=== PATIENT | female | born 1955 | race Caucasian/White ===

== ENCOUNTER 2023-08-10 10:32 | Inpatient (IN) | payer MEDICARE ==
[2023-08-10 11:27] LABS: #Monocytes 0.3 10x3/uL (0.0-1.1); #Neutrophils 4.1 10x3/uL (1.5-8.4); %Basophils 0.7 % (0.0-2.0); %Eosinophils 0.5 % (0.0-6.0); %Lymphocytes 19.3 % (18.0-47.0); Hemoglobin 10.5 g/dL (12.0-15.5); Mean Corpuscular HGB CONC 31.8 g/dL (32.0-36.0); Mean Corpuscular Hemoglobin 30.1 pg (27.0-33.0); Mean Corpuscular Volume 94.6 fl (81.6-98.3); Mean Platelet Volume 9.7 fl (7.4-10.4); Platelet Count 293 10x3/uL (150-450); RBC Distribution Width 14.4 % (11.5-14.5); Red Blood Cell (RBC) Count 3.49 10x6/uL (3.90-5.03); White Blood Cell (WBC) Count 5.7 10x3/uL (3.5-10.5)
[2023-08-10 11:45] LABS: ALT (SGPT) 9 U/L (8-55); AST (SGOT) 20 U/L (5-34); Albumin 3.5 g/dL (3.4-4.8); Alkaline Phosphatase 101 U/L (40-110); Anion Gap 15 mmol/L (10-20); BUN (Urea Nitrogen) 31 mg/dL (9.8-20.1); Bilirubin, Total 0.5 mg/dL (0.2-1.2); Calc. Creatinine Clearance 0 mL/min (70-130); Calcium 9.4 mg/dL (7.8-10.44); Carbon Dioxide 25 mmol/L (23-31); Chloride 100 mmol/L (98-107); Estimated GFR 24; Globulin 3.6 g/dL (2.4-3.5); Glucose 126 mg/dL (80-115); Lipase 17 U/L (8-78); Protein, Total 7.1 g/dL (5.8-8.1); Sodium 136 mmol/L (136-145)
[2023-08-10 13:24] LABS: Troponin I 0.019 ng/mL (< 0.028)
[2023-08-10] MEDS ORDERED: Furosemide 40 MG (4 mL) VIAL ONE (13:49)
[2023-08-10] MEDS ORDERED: Acetaminophen 325 MG TAB PO PRN (14:23)
[2023-08-10] MEDS ORDERED: Ondansetron ODT 4 MG TAB PO PRN (14:23)
[2023-08-10] MEDS ORDERED: Ondansetron PF 4 MG/2 ML Vial IVP PRN (14:23)
[2023-08-10 15:12] LABS: Troponin I 0.017 ng/mL (< 0.028)
[2023-08-10 15:18] LABS: Magnesium 1.7 mg/dL (1.6-2.6)
[2023-08-10] MEDS: Nicotine 14 MG PATCH TD SCH (16:15)
[2023-08-10 17:54] LABS: Troponin I 0.012 ng/mL (< 0.028)
[2023-08-10 21:46] VITALS: BMI 31.3
[2023-08-10 21:51] LABS: Bilirubin Neg (Negative); Blood, Urine 10 (Negative); Clarity Clear (Clear); Glucose, Urine (Dipstick) Normal (Negative); Ketone, Urine Negative (Negative); Leukocyte Negative (Negative); Nitrite Negative (Negative); Protein, Urine (Dipstick) 100 mg/dl (Neg-Trace); Urobilinogen Normal mg/dL (Less than 2)
[2023-08-10] MEDS ORDERED: Pantoprazole 40 MG VIAL IVP SCH (22:00)
[2023-08-10 22:06] LABS: CAUTI Indications for Culture Alt mental st,lethar; RBC/HPF 0-3 HPF (0-3); WBC/HPF 0-3 HPF (0-3)
[2023-08-10 22:07] LABS: Bacteria/HPF None Seen HPF (None Seen); Urine Culture Reflex No No
[2023-08-10] MEDS ORDERED: Pantoprazole 40 MG VIAL ONE (22:09)
[2023-08-11] MEDS ORDERED: traZODone HCl 50 MG TAB PO SCH (00:15)
[2023-08-11] MEDS ORDERED: traZODone HCl 50 MG TAB ONE (00:23)
[2023-08-11 04:38] LABS: #Eosinphils 0.1 10x3/uL (0.0-0.5); #Monocytes 0.5 10x3/uL (0.0-1.1); #Neutrophils 3.4 10x3/uL (1.5-8.4); %Basophils 0.6 % (0.0-2.0); %Eosinophils 1.5 % (0.0-6.0); %Lymphocytes 24.9 % (18.0-47.0); %Monocytes 8.9 % (0.0-10.0); %Neutrophils 63.5 % (40.0-75.0); Hematocrit 30.8 % (34.9-44.5); Hemoglobin 9.8 g/dL (12.0-15.5); Mean Corpuscular HGB CONC 31.8 g/dL (32.0-36.0); Mean Corpuscular Hemoglobin 29.8 pg (27.0-33.0); Mean Corpuscular Volume 93.6 fl (81.6-98.3); Mean Platelet Volume 9.8 fl (7.4-10.4); Platelet Count 239 10x3/uL (150-450); RBC Distribution Width 14.3 % (11.5-14.5); Red Blood Cell (RBC) Count 3.29 10x6/uL (3.90-5.03); White Blood Cell (WBC) Count 5.3 10x3/uL (3.5-10.5)
[2023-08-11 04:55] LABS: Anion Gap 14 mmol/L (10-20); BUN (Urea Nitrogen) 30 mg/dL (9.8-20.1); Calc. Creatinine Clearance 38 mL/min (70-130); Calcium 8.9 mg/dL (7.8-10.44); Carbon Dioxide 26 mmol/L (23-31); Chloride 103 mmol/L (98-107); Estimated GFR 27; Glucose 91 mg/dL (80-115); Potassium 3.6 mmol/L (3.5-5.1); Sodium 139 mmol/L (136-145)
[2023-08-11] MEDS ORDERED: Furosemide 40 MG (4 mL) VIAL SLOW IVP SCH (09:00)
[2023-08-11] MEDS ORDERED: Furosemide 40 MG (4 mL) VIAL ONE (09:04)
[2023-08-11] MEDS ORDERED: Pantoprazole 40 MG VIAL ONE (09:05)
[2023-08-11] MEDS: Pantoprazole 40 MG VIAL IVP SCH ×2 (09:15→21:16)
[2023-08-11] MEDS ORDERED: hydrALAZINE 20 MG/ML VIAL SLOW IVP PRN (10:02)
[2023-08-11] MEDS ORDERED: NIFEdipine XL 60 MG ER.TAB PO SCH (10:30)
[2023-08-11 12:12] LABS: Hemoglobin A1c 5.3 % (4.0-6.0)
[2023-08-11] MEDS: hydrALAZINE 25 MG TAB PO SCH ×2 (16:03→21:16)
[2023-08-11] MEDS: Nicotine 14 MG PATCH TD SCH (16:03)
[2023-08-11] MEDS ORDERED: Melatonin 3 MG TAB PO SCH (20:30)
[2023-08-12 06:08] LABS: #Monocytes 0.5 10x3/uL (0.0-1.1); #Neutrophils 3.5 10x3/uL (1.5-8.4); %Basophils 0.5 % (0.0-2.0); %Eosinophils 0.4 % (0.0-6.0); %Lymphocytes 25.5 % (18.0-47.0); %Monocytes 9.6 % (0.0-10.0); %Neutrophils 63.3 % (40.0-75.0); Hematocrit 28.7 % (34.9-44.5); Hemoglobin 9.2 g/dL (12.0-15.5); Mean Corpuscular HGB CONC 32.1 g/dL (32.0-36.0); Mean Corpuscular Hemoglobin 29.8 pg (27.0-33.0); Mean Corpuscular Volume 92.9 fl (81.6-98.3); Mean Platelet Volume 10.2 fl (7.4-10.4); Platelet Count 243 10x3/uL (150-450); RBC Distribution Width 14.1 % (11.5-14.5); Red Blood Cell (RBC) Count 3.09 10x6/uL (3.90-5.03); White Blood Cell (WBC) Count 5.5 10x3/uL (3.5-10.5)
[2023-08-12 06:19] LABS: Anion Gap 13 mmol/L (10-20); BUN (Urea Nitrogen) 27 mg/dL (9.8-20.1); Calc. Creatinine Clearance 42 mL/min (70-130); Calcium 8.8 mg/dL (7.8-10.44); Carbon Dioxide 28 mmol/L (23-31); Chloride 101 mmol/L (98-107); Estimated GFR 30; Glucose 102 mg/dL (80-115); Potassium 3.5 mmol/L (3.5-5.1); Sodium 138 mmol/L (136-145)
[2023-08-12] MEDS: Furosemide 20 MG TAB PO SCH (08:07)
[2023-08-12] MEDS: hydrALAZINE 25 MG TAB PO SCH ×3 (08:07→20:47)
[2023-08-12] MEDS: Pantoprazole 40 MG VIAL IVP SCH ×2 (08:07→20:47)
[2023-08-12] MEDS: NIFEdipine XL 60 MG ER.TAB PO SCH (08:07)
[2023-08-12] MEDS ORDERED: traMADol HCl 50 MG TAB PO PRN (08:13)
[2023-08-12] MEDS ORDERED: Ipratropium/Albuterol 3 ML NEB NEB PRN (14:09)
[2023-08-12] MEDS: Nicotine 14 MG PATCH TD SCH (14:33)
[2023-08-12] MEDS ORDERED: ALPRAZolam 0.5 MG TAB PO SCH (16:00)
[2023-08-12] MEDS ORDERED: traZODone HCl 50 MG TAB PO PRN (20:00)
[2023-08-12] MEDS: busPIRone HCl 15 MG TAB PO SCH (20:52)
[2023-08-13 04:37] VITALS: BP 115/57; TEMP 98.6
[2023-08-13 05:44] LABS: #Monocytes 0.6 10x3/uL (0.0-1.1); #Neutrophils 3.6 10x3/uL (1.5-8.4); %Basophils 0.5 % (0.0-2.0); %Eosinophils 0.7 % (0.0-6.0); %Lymphocytes 23.4 % (18.0-47.0); %Monocytes 10.1 % (0.0-10.0); %Neutrophils 64.6 % (40.0-75.0); Hemoglobin 9.8 g/dL (12.0-15.5); Mean Corpuscular HGB CONC 31.6 g/dL (32.0-36.0); Mean Corpuscular Hemoglobin 29.8 pg (27.0-33.0); Mean Corpuscular Volume 94.2 fl (81.6-98.3); Mean Platelet Volume 9.8 fl (7.4-10.4); Platelet Count 230 10x3/uL (150-450); RBC Distribution Width 14.2 % (11.5-14.5); Red Blood Cell (RBC) Count 3.29 10x6/uL (3.90-5.03); White Blood Cell (WBC) Count 5.5 10x3/uL (3.5-10.5)
[2023-08-13 05:48] LABS: Anion Gap 11 mmol/L (10-20); BUN (Urea Nitrogen) 27 mg/dL (9.8-20.1); Calc. Creatinine Clearance 46 mL/min (70-130); Calcium 8.9 mg/dL (7.8-10.44); Carbon Dioxide 29 mmol/L (23-31); Chloride 101 mmol/L (98-107); Estimated GFR 33; Glucose 119 mg/dL (80-115); Potassium 3.8 mmol/L (3.5-5.1); Sodium 137 mmol/L (136-145)
[2023-08-13] MEDS: busPIRone HCl 15 MG TAB PO SCH (10:32)
[2023-08-13] MEDS: NIFEdipine XL 60 MG ER.TAB PO SCH (10:32)
[2023-08-13] MEDS: Furosemide 20 MG TAB PO SCH (10:32)
[2023-08-13] MEDS: Pantoprazole 40 MG VIAL IVP SCH (10:33)
[2023-08-13] MEDS ORDERED: Ipratropium/Albuterol 3 ML NEB NEB SCH ×2 (10:45→14:30)
[2023-08-13] MEDS ORDERED: predniSONE 20 MG TAB PO SCH (11:00)
[2023-08-13] MEDS: hydrALAZINE 25 MG TAB PO SCH (12:38)
[2023-08-13] MEDS ORDERED: Doxycycline 100 MG CAP PO SCH (21:00)
[2023-08-14] MEDS ORDERED: predniSONE 20 MG TAB PO SCH (08:00)
== END 2023-08-13 14:38 | disposition home or self-care (01) | DRG 683 ==
LOC: CSHERS 10:32 → CSHERHOLD 14:07 → CSHTELE 08-11 12:58 → OBSVTOIN 08-12 13:23
PROVIDERS: ADMIT Family Medicine; ATTEND Family Medicine
DX: N17.9 Acute kidney failure, unspecified (principal); I13.0 Hypertensive heart and chronic kidney disease with heart failure and stage 1 through stage 4 chronic kidney disease, or unspecified chronic kidney disease; J44.1 Chronic obstructive pulmonary disease with (acute) exacerbation; E11.22 Type 2 diabetes mellitus with diabetic chronic kidney disease; E78.5 Hyperlipidemia, unspecified; N18.30 Chronic kidney disease, stage 3 unspecified; K21.9 Gastro-esophageal reflux disease without esophagitis; F17.210 Nicotine dependence, cigarettes, uncomplicated; E66.01 Morbid (severe) obesity due to excess calories; D63.1 Anemia in chronic kidney disease; Z88.0 Allergy status to penicillin; Z88.8 Allergy status to other drugs, medicaments and biological substances; Z79.899 Other long term (current) drug therapy; Z79.51 Long term (current) use of inhaled steroids; Z79.82 Long term (current) use of aspirin; Z98.890 Other specified postprocedural states; Z71.6 Tobacco abuse counseling; Z90.710 Acquired absence of both cervix and uterus; Z95.820 Peripheral vascular angioplasty status with implants and grafts; Z68.31 Body mass index [BMI] 31.0-31.9, adult
CPT/HCPCS: 36415; 36416; 71045; 80048; 80053; 81001; 82271; 83036; 83690; 83735; 83880; 84484; 85025; 93005; 93306; 94760; 96374; 96375; 96376; C9113; G0378; J0360; J1940; J7512